=== PATIENT | female | born 1975 | race African-American/Black ===

== ENCOUNTER → 2018-04-27 | Outpatient (CLI) | payer OTHER ==
[~2018-04-27] MED LIST: APAP500; DERMOPLAST SPRA56 ML; IBUPROFEN 600600 M1; LANOLIN56 GM; NORCO 5-325 TA1 EACH PO; PRENATAL PO; SENNA; TUCKS MEDICATE1 EAC1
== END ==
LOC: RAD 13:16
DX: M25.561 Pain in right knee (principal)

== ENCOUNTER 2020-03-28 08:08 | Emergency (ER) | payer OTHER ==
[~2020-03-28] VITALS: Ht 162.6 cm; Wt 91.6 kg
[2020-03-28] MEDS ORDERED: MICONAZOLE NITR15 GM TOP (08:20)
[2020-03-28] MEDS ORDERED: ZOLPIDEM TARTRA10 MG PO (08:20)
[2020-03-28] MEDS ORDERED: PREDNISONE 5 MG5 M1 PO (08:49)
[2020-03-28 09:40] VITALS: BP 111/84
== END 2020-03-28 09:40 | disposition home or self-care (01) ==
LOC: ER 08:08
DX: F41.9 Anxiety disorder, unspecified (principal); H93.12 Tinnitus, left ear; Z79.899 Other long term (current) drug therapy; Z88.1 Allergy status to other antibiotic agents